=== PATIENT | male | born 1980 | race Caucasian/White ===

== ENCOUNTER 2017-12-02 01:15 | Emergency (ER) | payer BC, OTHER ==
[~2017-12-02] VITALS: Ht 170.2 cm; Wt 102.1 kg
--- NOTE | 2017-12-02 01:39 | NUR ---
PT AMBULATORY TO ER BED 3. BIBSELF C/O "NERVE PAIN ALL OVER BODY" X 3 DAYS. HX NEUROPATHY/DIABETES. PT PLACED ON WAIST PRESSER. VSS/RESP EVEN UNLABORED/NAD NOTED/SKIN WARM AND DRY/DENIES N-V-D/AFEBRILE/AOX4. AWAITING MD GUZMÁN.
[2017-12-02] MEDS ORDERED: ONDANSETRON HCL/PF 4 MG/2 ML VIAL ONE (02:14)
[2017-12-02] MEDS ORDERED: oxyCODONE/APAP (5/325 MG) 1 UDTAB TABLET ONE ×2 (02:14→03:59)
--- NOTE | 2017-12-02 02:20 | NUR ---
19G IV X 1 ATTEMPT TO L HAND USING ASEPTIC TECH, BLOOD HANDED OVER TO THE LAB AT THE BEDSIDE. IV FLUSHES EASILY WITH NS, NO S/S INFILTRATION.
[2017-12-02] MEDS ORDERED: ONDANSETRON HCL/PF 4 MG/2 ML VIAL IVP ONE (02:30)
[2017-12-02] MEDS ORDERED: oxyCODONE/APAP (5/325 MG) 1 UDTAB TABLET PO ONE ×2 (02:30→04:00)
[2017-12-02] MEDS ORDERED: IV NS 0.9% 1,000 ML BAG IV ONE ×2 (02:30)
[2017-12-02] MEDS ORDERED: INSULIN REGULAR, HUMAN 100 UNIT/ML 10 ML VIAL IV ONE (02:30)
[2017-12-02 02:32] LABS: BASOPHILS % (AUTO) 0.4 % (0.0-2.0); EOSINOPHILS % (AUTO) 1.4 % (0.0-6.0); HEMATOCRIT 43 % (39-51); HEMOGLOBIN 15.4 g/dL (13.5-17.5); LYMPHOCYTES # (AUTO) 2.3 /CMM (0.8-4.8); LYMPHOCYTES % (AUTO) 40.1 % (20.0-44.0); MEAN CORPUSCULAR HGB CONC 36 g/dl (31.0-36.0); MEAN CORPUSCULAR VOLUME 79 fL (80-96); MONOCYTES # (AUTO) 0.4 /CMM (0.1-1.30); MONOCYTES % (AUTO) 7.6 % (2.0-12.0); NEUTROPHILS # (AUTO) 2.9 /CMM (1.8-8.9); NEUTROPHILS % (AUTO) 50.5 % (43.0-81.0); PLATELET COUNT (AUTO) 246 /CMM (150-450); RDW COEFFICIENT OF VARIATION 13.1 (11.5-15.0); RED BLOOD CELL COUNT(AUTO) 5.51 MIL/uL (4.5-6.0); WHITE BLOOD COUNT (AUTO) 5.8 K/uL (4.3-11.0)
[2017-12-02] MEDS ORDERED: INSULIN REGULAR, HUMAN 100 UNIT/ML 10 ML VIAL ONE (02:38)
[2017-12-02 02:49] LABS: CALCIUM, SERUM 7.9 mg/dL (8.5-10.1); CREATININE 0.9 mg/dL (0.6-1.3); POTASSIUM 4.2 mmol/L (3.5-5.1)
--- NOTE | 2017-12-02 03:49 | NUR ---
PT SITTING ON SIDE OF THE BED. VSS.
--- NOTE | 2017-12-02 04:10 | NUR ---
IV removed. Catheter intact and site benign. Pressure and 4x4 applied to site. No bleeding noted. Patient discharged with friend to home in stable condition. Written and verbal after care instructions given, patient instructed not to drive. Patient verbalizes understanding of instruction. Patient is awake and alert to self, day, and place. Patient ambulatory with a steady gait.
[2017-12-02 04:11] VITALS: BP 127/72
== END 2017-12-02 04:12 | disposition home or self-care (01) ==
LOC: ER 01:17
DX: G89.4 Chronic pain syndrome (principal); E10.40 Type 1 diabetes mellitus with diabetic neuropathy, unspecified; E10.10 Type 1 diabetes mellitus with ketoacidosis without coma
CPT/HCPCS: 36415; 80048-TC; 82010-TC; 82962-TC; 85025-TC; A4606; J1815; J2405; J7030; Z7610